=== PATIENT | female | born 1940 ===

== ENCOUNTER 2020-10-23 05:25 | Day surgery (SDC) | payer OTHER ==
[~2020-10-23 05:25] MED LIST: ATORVASTATIN CA10 MG PO; CLONAZEPAM0.5 MG PO; DONEPEZIL HCL23 MG PO; ECOTRIN325 M1 PO; FOSAMAX70 MG PO; NORVASC2.5 MG PO; ZESTRIL10 M1 PO; ZOLOFT100 MG PO
[2020-10-23] MEDS ORDERED: PERCOCET 5-3251 EACH PO (09:29)
== END 2020-10-23 13:15 | disposition home or self-care (01) ==
LOC: CIR.AMB 05:25
PROVIDERS: ATTEND Surgery
DX: D34 Benign neoplasm of thyroid gland (principal); D35.1 Benign neoplasm of parathyroid gland; Z20.822 Contact with and (suspected) exposure to COVID-19